=== PATIENT | female | born 1990 | race Caucasian/White ===

== ENCOUNTER → 2023-04-07 09:20 | Outpatient (CLI) | payer BC, SELFPAY ==
--- NOTE | ~2023-04-07 | US_ITS ---
EXAMINATION: US breast RT limited HISTORY: Palpable lump in the upper inner quadrant of the right breast TECHNIQUE: Limited right breast ultrasound was performed. FINDINGS: There is a 9 mm x 5 mm oval, circumscribed, parallel, hyperechoic mass at the 12:30 locatio n, 10 cm from the nipple with no posterior features or internal vascularity corresponding to the palp able abnormality of concern. IMPRESSION: Probably benign right breast mass corresponding to the palpable abnormality of concern. Recommend con tinued clinical follow-up and targeted right breast ultrasound in six months. BI-RADS category 3, probably benign findings. Reviewed, dictated and finalized at location A. IMPRESSION: Probably benign right breast mass corresponding to the palpable abnormality of concern. Recommend continued clinical follow-up and targeted right breast ultra sound in six months. BI-RADS category 3, probably benign findings.
== END ==
PROVIDERS: PCP Obstetrics & Gynecology; Visit Provider Obstetrics & Gynecology
DX: N63.10 Unspecified lump in the right breast, unspecified quadrant (principal); R92.8 Other abnormal and inconclusive findings on diagnostic imaging of breast
CPT/HCPCS: 76642

== ENCOUNTER 2024-10-04 08:26 | Outpatient (CLI) | payer BC, SELFPAY ==
--- NOTE | ~2024-10-04 | MMUS_ITS ---
EXAMINATION: MM diagnostic kerry RT w laura, US breast RT limited HISTORY: Follow-up right breast mass TECHNIQUE: Additional 3-D tomosynthesis images of the right breast were performed and synthetic 2-D i mages were generated. CAD analysis was submitted and interpreted. High resolution Limited right breas t ultrasound was performed. COMPARISON: Ultrasound dated 04/07/2023 BREAST PARENCHYMAL COMPOSITION: Not Dense: The breasts are almost entirely fatty. FINDINGS: MAMMOGRAPHIC FINDINGS: There are no suspicious masses, calcifications or architectural distortion in the right breast to sug gest malignancy. ULTRASOUND: Limited right breast ultrasound: At 12-1:00, 10 cm from the nipple there is an oval parallel oriented hyperechoic mass measuring 11 x 5 x 7 mm. No internal vascularity or posterior features. There are s mooth margins. Internal echotexture is slightly altered compared with prior ultrasound dated 04/07/20 23, although this could be technical. On the prior ultrasound the mass measured 11 x 9 x 5 mm. IMPRESSION: 1. Stable oval parallel oriented hyperechoic right breast mass at 12-1:00 position, 10 cm from the ni pple, compatible with lipoma. No evidence for malignancy in the right breast. 2. Recommend follow-up ultrasound as clinically warranted. BI-RADS Category 2: Benign finding(s). Reviewed, dictated and finalized at location A. IMPRESSION: 1. Stable oval parallel oriented hyperechoic right breast mass at 12-1:00 posit ion, 10 cm from the nipple, compatible with lipoma. No evidence for malignancy in the right breast. 2. Recommend follow-up ultrasound as clinically warranted. BI-RADS Category 2: Benign finding(s).
== END 2024-10-04 08:27 | disposition home or self-care (01) ==
PROVIDERS: PCP Nurse Practitioner; Visit Provider Nurse Practitioner
DX: N63.0 Unspecified lump in unspecified breast (principal)
CPT/HCPCS: 76642; 77061; 77065; G0279